=== PATIENT | female | born 1960 | race Caucasian/White ===

== ENCOUNTER 2019-02-10 12:33 | Emergency (ER) | payer BC ==
[~2019-02-10] VITALS: Ht 170.2 cm; Wt 113.4 kg
[2019-02-10 12:45] VITALS: BP_SYST 164
--- NOTE | 2019-02-10 14:26 | NUR ---
Patient to ER bed h1 for evaluation. Side rails up.
--- NOTE | 2019-02-10 14:28 | NUR ---
Pt AAOx4 ambulated into ED c/o sore throat and swelling to neck x 1 month. Pt was seen by PMD and given steroids with mild relief. Pt attempted to obtain another RX from PMD, but was referred to ED for evaluation. Reports congestion. No other injuries/complaintsper pt/noted. Will continue to monitor.
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
--- NOTE | 2019-02-10 14:38 | NUR ---
YESCIA Bales at bedside examining patient.
[2019-02-10 14:49] VITALS: BP_SYST 148
--- NOTE | 2019-02-10 14:49 | NUR ---
Patient given written and verbal discharge instructions and verbalizes understanding. YESICA Bales discussed with patient the results and treatment provided. Patient in stable condition. ID arm band removed. Rx of Flonase, Augmentin given. Patient educated on pain management and to follow up with PMD. Pain Scale 0. Opportunity for questions provided and answered. Medication side effect fact sheet provided.
== END 2019-02-10 14:49 | disposition home or self-care (01) ==
LOC: SED 12:33
DX: J32.9 Chronic sinusitis, unspecified (principal); E11.9 Type 2 diabetes mellitus without complications; Z88.1 Allergy status to other antibiotic agents; Z88.8 Allergy status to other drugs, medicaments and biological substances
CPT/HCPCS: 99283

== ENCOUNTER 2020-09-22 14:46 | Inpatient (IN) | payer BC, SELFPAY ==
[~2020-09-22] VITALS: Ht 170.2 cm; Wt 126.1 kg
[2020-09-22 15:00] VITALS: BP_SYST 171
[2020-09-22] MEDS ORDERED: ENALAPRILAT DIHYDRATE 1.25 MG/ML VIAL IVP ONE (15:30)
[2020-09-22 16:19] LABS: BASOPHILS % (AUTO) 0.2 % (0.0-2.0); EOSINOPHILS # (AUTO) 0.2 K/uL (0.0-0.4); EOSINOPHILS % (AUTO) 1.3 % (0.0-4.0); HEMATOCRIT 38.8 % (36-48); HEMOGLOBIN 12.8 g/dL (12.0-16.0); LYMPHOCYTES # (AUTO) 2.7 K/uL (1.0-5.5); LYMPHOCYTES % (AUTO) 21.8 % (20.5-51.5); MEAN CORPUSCULAR HEMOGLOBIN 30 pg (27-31); MEAN CORPUSCULAR HGB CONC 33 % (32-36); MEAN CORPUSCULAR VOLUME 90 fL (79.0-98.0); MONOCYTES # (AUTO) 1.2 K/uL (0.0-1.0); MONOCYTES % (AUTO) 9.5 % (1.7-9.3); NEUTROPHILS # (AUTO) 8.3 K/uL (1.8-7.7); NEUTROPHILS % (AUTO) 67.2 % (40.0-70.0); PLATELET COUNT (AUTO) 449 K/uL (130-430); RED BLOOD CELL COUNT(AUTO) 4.32 MIL/uL (4.2-6.2); RED CELL DISTRIBUTION WIDTH 15.3 % (9.0-15.0); WHITE BLOOD COUNT (AUTO) 12.4 K/uL (4.8-10.8)
[2020-09-22 16:40] LABS: ANION GAP 9 (5-15); CALCIUM 8.9 mg/dL (8.4-11.0); CHLORIDE 104 mmol/L (98-107); CREATININE 0.92 mg/dL (0.55-1.30); GLUCOSE 163 mg/dL (70-99); POTASSIUM 3.7 mmol/L (3.5-5.1); SODIUM SERUM 140 mmol/L (136-145); UREA NITROGEN, BLOOD 10 mg/dL (8-21)
[2020-09-22] MEDS ORDERED: IOHEXOL 350 mgI/mL, 150 ML INFUS..BTL IV ONE (16:42)
[2020-09-22 16:45] LABS: GFR AFRICAN AMERICAN 81 mL/min (>90)
[2020-09-22 16:49] LABS: ALANINE AMINOTRANSFERASE 22 U/L (12-78); ALBUMIN 3.6 g/dL (3.4-4.8); ASPARTATE AMINOTRANSFERASE 13 U/L (10-37); TOTAL BILIRUBIN 0.3 mg/dL (0.0-1.0)
[2020-09-22 16:52] LABS: BILIRUBIN,URINE NEGATIVE (NEGATIVE); BLOOD, URINE NEGATIVE (NEGATIVE); CLARITY/URINE CLEAR (CLEAR); COLOR,URINE YELLOW (YELLOW); GLUCOSE,URINE NEGATIVE (NEGATIVE); KETONES,URINE NEGATIVE (NEGATIVE); LEUKOCYTE ESTERASE ,URINE TRACE (NEGATIVE); NITRITE, URINE NEGATIVE (NEGATIVE); PROTEIN URINE NEGATIVE (NEGATIVE); UROBILINOGEN,URINE 0.2 (0.2-1.0)
[2020-09-22 17:11] LABS: BACTERIA,URINE FEW /HPF (None Seen); RBC,URINE 0-3 /HPF (0-3); WBC,URINE 0-3 /HPF (0-3)
[2020-09-22] MEDS ORDERED: ASPIRIN 325 MG TABLET PO ONE (19:45)
[2020-09-22] MEDS ORDERED: LORazepam 2 MG/ML VIAL IVP ONE (19:45)
[2020-09-22] MEDS ORDERED: MONT4TAB9 PO (20:12)
[2020-09-22] MEDS ORDERED: LANS15CA14 PO (20:12)
[2020-09-22] MEDS ORDERED: METF1000 PO (20:12)
[2020-09-22] MEDS ORDERED: ASPI-1155 PO (20:12)
[2020-09-22] MEDS ORDERED: LANS30CA56 GT (20:13)
[2020-09-22] MEDS ORDERED: FEXO-25 PO (20:20)
[2020-09-22 21:57] VITALS: BP_SYST 155
[2020-09-22] MEDS ORDERED: cloNIDine HCL 0.1 MG TABLET PO PRN (23:45)
[2020-09-23] VITALS: BP_SYST 110
[2020-09-23 06:29] LABS: BASOPHILS # (AUTO) 0.1 K/uL (0.0-0.2); BASOPHILS % (AUTO) 1.2 % (0.0-2.0); EOSINOPHILS # (AUTO) 0.2 K/uL (0.0-0.4); EOSINOPHILS % (AUTO) 2.4 % (0.0-4.0); HEMATOCRIT 36.6 % (36-48); HEMOGLOBIN 12.2 g/dL (12.0-16.0); LYMPHOCYTES # (AUTO) 2.5 K/uL (1.0-5.5); LYMPHOCYTES % (AUTO) 26.1 % (20.5-51.5); MEAN CORPUSCULAR HEMOGLOBIN 30 pg (27-31); MEAN CORPUSCULAR HGB CONC 33 % (32-36); MEAN CORPUSCULAR VOLUME 89 fL (79.0-98.0); MONOCYTES # (AUTO) 1.3 K/uL (0.0-1.0); MONOCYTES % (AUTO) 13.8 % (1.7-9.3); NEUTROPHILS # (AUTO) 5.5 K/uL (1.8-7.7); NEUTROPHILS % (AUTO) 56.5 % (40.0-70.0); PLATELET COUNT (AUTO) 417 K/uL (130-430); RED BLOOD CELL COUNT(AUTO) 4.11 MIL/uL (4.2-6.2); RED CELL DISTRIBUTION WIDTH 15.1 % (9.0-15.0); WHITE BLOOD COUNT (AUTO) 9.7 K/uL (4.8-10.8)
[2020-09-23] MEDS ORDERED: INSULIN REGULAR, HUMAN 100 UNITS/ML, 10 ML VIAL (humuLIN R) SUBCUT PRN (06:30)
[2020-09-23 06:45] LABS: ALANINE AMINOTRANSFERASE 21 U/L (12-78); ALBUMIN 3.1 g/dL (3.4-4.8); ANION GAP 8 (5-15); ASPARTATE AMINOTRANSFERASE 15 U/L (10-37); CALCIUM 8.7 mg/dL (8.4-11.0); CHLORIDE 110 mmol/L (98-107); CREATININE 0.72 mg/dL (0.55-1.30); GLUCOSE 95 mg/dL (70-99); POTASSIUM 3.8 mmol/L (3.5-5.1); SODIUM SERUM 145 mmol/L (136-145); TOTAL BILIRUBIN 0.5 mg/dL (0.0-1.0); UREA NITROGEN, BLOOD 10 mg/dL (8-21)
[2020-09-23] MEDS ORDERED: LANSOPRAZOLE 30 MG CAPSULE.DR PO SCH (07:00)
[2020-09-23] MEDS ORDERED: INSULIN REGULAR, HUMAN 100 UNITS/ML, 10 ML VIAL SUBCUT SCH (07:00)
[2020-09-23] MEDS ORDERED: LANSOPRAZOLE 30 MG CAPSULE.DR GT SCH (07:00)
[2020-09-23 07:24] LABS: GFR AFRICAN AMERICAN 107 mL/min (>90)
[2020-09-23 07:39] LABS: CHOLESTEROL 136 mg/dL (<200); HDL CHOLESTEROL 59 mg/dL (>55); LDL CHOLESTEROL 71 mg/dL (<100); TRIGLYCERIDES 77 mg/dL (30-150)
[2020-09-23 08:00] VITALS: BP_SYST 115; BP_SYST 126
[2020-09-23] MEDS ORDERED: metFORMIN HCL 500 MG TABLET PO SCH (08:00)
[2020-09-23] MEDS: CITALOPRAM HYDROBROMIDE 20 MG TABLET PO SCH ×2 (08:42→08:47)
[2020-09-23] MEDS ORDERED: ASPIRIN 81 MG TAB.CHEW PO SCH (09:00)
[2020-09-23] MEDS ORDERED: amLODIPine BESYLATE 5 MG TABLET PO SCH (09:00)
[2020-09-23 11:25] VITALS: BP_SYST 135
[2020-09-23 16:24] VITALS: BP_SYST 106
[2020-09-23 17:02] VITALS: BP_SYST 106
[2020-09-23] MEDS ORDERED: AMLO5TAB4 PO (17:25)
== END 2020-09-23 18:00 | disposition home or self-care (01) | DRG 305 ==
LOC: SED 14:46 → STU 20:04
PROVIDERS: ADMIT Internal Medicine; ATTEND Internal Medicine
DX: I16.0 Hypertensive urgency (principal); D72.829 Elevated white blood cell count, unspecified; E11.9 Type 2 diabetes mellitus without complications; E66.01 Morbid (severe) obesity due to excess calories; I10 Essential (primary) hypertension; Z20.822 Contact with and (suspected) exposure to COVID-19; K29.70 Gastritis, unspecified, without bleeding; F41.9 Anxiety disorder, unspecified; F32.9 Major depressive disorder, single episode, unspecified; D3A.8 Other benign neuroendocrine tumors; Z90.81 Acquired absence of spleen; Z98.84 Bariatric surgery status; Z88.1 Allergy status to other antibiotic agents; Z88.8 Allergy status to other drugs, medicaments and biological substances; Z90.411 Acquired partial absence of pancreas; Z82.49 Family history of ischemic heart disease and other diseases of the circulatory system
CPT/HCPCS: 36415; 71045; 71275; 76376; 80053; 80061; 81000-TC; 82962; 83036; 84484; 85025; 87086; 93005; 93306; 96374; 96375; G0378; J1815; J2060; Q9967